=== PATIENT | male | born 1960 | race Caucasian/White ===

== ENCOUNTER → 2017-05-10 | Day surgery (SDC) | payer OTHER ==
[~2017-05-10] VITALS: Ht 175.3 cm; Wt 83.5 kg
[~2017-05-10] MED LIST: ESCITALOPRAM 2020 MG PO; GABAPENTIN300 MG PO; IMITREX 25MG TA25 MG PO; LYRICA75 MG PO; MAXALT10 MG PO; OMEPRAZOLE40 MG PO; PROBIOTIC1 EAC3 PO; SULINDAC200 MG PO; TIZANIDINE4 MG OR
[2017-05-10 11:05] VITALS: BP 137/84
[2017-05-10 11:19] VITALS: BP 137/84
[2017-05-10 11:20] VITALS: BP 129/88
--- NOTE | 2017-05-10 11:34 | Procedure Note ---
Procedure detail Date of procedure: 05/10/17 Anesthesiologist: Navi Paris Complications: None Pre-procedure diagnosis: Degenerative disease lumbar spine multiple levels. Lumbar spondylosis. Post-procedure diagnosis: Same. Indications for procedure: Very pleasant 56-year-old white male we've been treating for chronic pain in the lumbar spine. Patient has responded very well to medial branch block L3-4, L4-5, L5-S1. He presents today for radial frequency ablation of the RIGHT L3-4, L4-5, L5-S1. Procedure detail: The procedure was explained to the patient in detail. Consent form was signed. Patient was taken back to the procedure room, where noninvasive monitors were placed. This included noninvasive blood pressure cuff and pulse oximeter. The patient was placed prone on the C-arm table. The area over the lumbar spine was cleansed using chlorhexidine as cleansing solution. Using fluoroscopy guidance, markers were placed over the pedicle at the Right [ L4, L5] as well as over the right [sacral ala]. 1% Lidocaine was used to anesthetize the skin with a 25- gauge needle at these markers. Using fluoroscopy guidance the radiofrequency probe was used to access the superior margin of the pedicle at the right [ L4, L5 and the sacral ala]. After negative motor stimulation, 2 mls of 0.25% Marcaine and 10 mg of Depo-Medrol were injected into each needle. We then proceeded with radial frequency ablation at all 3 levels at 80 degrees Celsius 60 seconds. After the lesion was formed the needles were withdrawn. Band-Aids were applied. The patient tolerated the procedure without difficulty. There were no complications Plan and disposition: Patient was reevaluated 10 minutes post procedure. He's doing very well. He will return in 2 weeks for LEFT side reproducing ablation L3-4, L4-5, L5-S1.
[2017-05-10 11:36] VITALS: BP 115/80
== END ==
LOC: PM 10:57
PROC: 3E0T3TZ Introduction of Destructive Agent into Peripheral Nerves and Plexi, Percutaneous Approach (ICD-10-PCS; principal; 2017-05-10)
PROC: BR161ZZ Fluoroscopy of Lumbar Facet Joint(s) using Low Osmolar Contrast (ICD-10-PCS; 2017-05-10)
DX: M51.36 Other intervertebral disc degeneration, lumbar region (principal); M47.896 Other spondylosis, lumbar region
CPT/HCPCS: J1030

== ENCOUNTER → 2017-05-21 | Day surgery (SDC) | payer OTHER ==
[~2017-05-21] VITALS: Ht 175.3 cm; Wt 81.6 kg
[2017-05-21 13:27] VITALS: BP 118/73
[2017-05-21 13:58] VITALS: BP 118/73
[2017-05-21 14:13] VITALS: BP 152/77
--- NOTE | 2017-05-21 14:27 | Procedure Note ---
Procedure detail Date of procedure: 05/21/17 Anesthesiologist: Navi Paris Complications: None Pre-procedure diagnosis: Degenerative disc disease lumbar spine multiple levels. Lumbar facet arthropathy. Lumbar spondylosis. Post-procedure diagnosis: Same. Indications for procedure: This patient's very pleasant 66-year-old white male returns our pain clinic today for LEFT side radial frequency ablation L3-4, L4-5, L5-S1. Patient had excellent relief from RIGHT side reference ablation the same levels. Procedure detail: The procedure was explained to the patient in detail. Consent form was signed. Patient was taken back to the procedure room, where noninvasive monitors were placed. This included noninvasive blood pressure cuff and pulse oximeter. The patient was placed prone on the C-arm table. The area over the lumbar spine was cleansed using chlorhexidine as cleansing solution. Using fluoroscopy guidance, markers were placed over the pedicle at the [LEFT][ L4, L5] as well as over the [sacral ala]. 1% Lidocaine was used to anesthetize the skin with a 25-gauge needle at these markers. Using fluoroscopy guidance the radiofrequency probe was used to access the superior margin of the pedicle at [ L4, L5 and the sacral ala ]. After negative motor stimulation, 2 mls of 0.25% Marcaine and 10 mg of Depo- Medrol were injected into each needle. We then proceeded with radial frequency ablation at all 3 levels at 80 degrees Celsius 60 seconds. After the lesion was formed the needles were withdrawn. Band-Aids were applied. The patient tolerated the procedure without difficulty. There were no complications Plan and disposition: Patient was reevaluated 10 minutes post procedure. He's doing very well. A return to see us as needed. at [id number]
[2017-05-21 14:45] VITALS: BP 122/90
== END ==
LOC: PM 13:07
PROC: 3E0T3TZ Introduction of Destructive Agent into Peripheral Nerves and Plexi, Percutaneous Approach (ICD-10-PCS; principal; 2017-05-21)
PROC: BR161ZZ Fluoroscopy of Lumbar Facet Joint(s) using Low Osmolar Contrast (ICD-10-PCS; 2017-05-21)
DX: M51.36 Other intervertebral disc degeneration, lumbar region (principal); M12.88 Other specific arthropathies, not elsewhere classified, other specified site; M47.896 Other spondylosis, lumbar region
CPT/HCPCS: J1030